=== PATIENT | female | born 2005 | race Two or more races ===

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

== ENCOUNTER 2024-01-04 11:09 | Emergency (ER) | payer MEDICAID ==
[~2024-01-04] VITALS: Ht 157.5 cm; Wt 68.6 kg
[2024-01-04 12:07] VITALS: BP 113/76; PULSE 80; RESP 14; TEMP 97.9; O2SAT 98
[2024-01-04] MEDS ORDERED: CEPH500C PO (12:25)
== END 2024-01-04 12:28 | disposition home or self-care (01) ==
LOC: ER 11:09
DX: M67.48 Ganglion, other site (principal); L08.89 Other specified local infections of the skin and subcutaneous tissue; F41.9 Anxiety disorder, unspecified; Z91.040 Latex allergy status; Z79.899 Other long term (current) drug therapy

== ENCOUNTER 2024-06-28 22:16 | Emergency (ER) | payer MEDICAID ==
[~2024-06-28] VITALS: Ht 157.5 cm; Wt 78.8 kg
[~2024-06-28 22:16] MED LIST: CEPH500C PO
[2024-06-28 23:52] VITALS: O2SAT 98
[2024-06-29] MEDS: IBUPROFEN 800 MG TAB PO ONE (00:08)
[2024-06-29] MEDS: ACETAMINOPHEN 500 MG TAB or CAP PO ONE (00:08)
[2024-06-29 00:31] LABS: COVID19 ANTIGEN SOFIA FIA NEGATIVE (NEGATIVE); Rapid Influenza B Negative (Negative)
[2024-06-29] MEDS: SODIUM CHLORIDE 0.9% 1,000 ML IV ONE (00:32)
[2024-06-29] MEDS: LORazepam 2MG/ML-1ML VIAL IV ONE (00:49)
--- NOTE | 2024-06-29 01:03 | ED.PDOC ---
SOB-HPI HPI Comments THIS IS A 18-YEAR-OLD FEMALE PRESENTS TO THE ED CHIEF COMPLAINT FLU-LIKE S YMPTOMS X2 DAYS. SHE REPORTS FEVERS AND COUGH. PATIENT ALSO REPORTS HISTORY OF ANXIETY WAS ON MEDICATION BUT STOPPED IT DUE TO WEIGHT GAIN. SHE DENIES HEADACHE, CHEST PAIN, DIFFICULTY BREATHING, SHORTNESS OF BREATH, ABDOMINAL PAIN. 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 Hx Family History Family History: Reviewed,noncontributory to illness Social History Smoker: Non-Smoker Alcohol: Denies ETOH Use Drugs: Denies Drug Use Lives In: Home Constitutional: reports: fever; denies: chills, diaphoresis, fatigue, malaise, sweats, weakness, others EENTM: denies: blurred vision, double vision, ear bleeding, ear discharge, ear drainage, ear pain, ear ringing, eye pain, eye redness, hearing loss, mouth pain, mouth swelling, nasal discharge, nose bleeding, nose congestion, nose pain, photophobia, tearing, throat pain, throat swelling, voice changes, others Respiratory: reports: cough Cardiovascular: denies: chest pain, dizzy spells, diaphoresis, Dyspnea on exertion, edema, irregular heart beat, left arm pain, lightheadedness, palpitations, PND, syncope, others Gastrointestinal: denies: abdomen distended, abdominal pain, blood streaked bowels, constipated, diarrhea, dysphagia, difficulty swallowing, hematemesis, melena, nausea, poor appetite, poor fluid intake, rectal bleeding, rectal pain, vomiting, others Genitourinary: denies: abnormal vagina bleeding, burning, dyspareunia, dysuria, flank pain, frequency, hematuria, incontinence, pain, , vagina discharge, urgency, others Neurological: denies: dizziness, fainting, headache, left sided numbness, left sided weakness, numbness, paresthesia, pre-existing deficit, right sided numbness, right sided weakness, seizure, speech problems, tingling, tremors, weakness, others Musculoskeletal: denies: back pain, gout, joint pain, joint swelling, muscle pain, muscle stiffness, neck pain, others Integumetry: denies: bruises, change in color, change in hair/nails, dryness, laceration, lesions, lumps, rash, wounds, others Allergic/Immunocompromised: denies: Difficulty Healing, Frequent Infections, Hives, Itching, others Hematologic/Lymphatic: denies: anemia, blood clots, easy bleeding, easy bruising, swollen glands, others Endocrine: denies: excessive hunger, excessive sweating, excessive thirst, excessive urination, flushing, intolerance to cold, intolerance to heat, unexplained weight gain, unexplained weight loss, others Psychiatric: reports: anxiety; denies: bipolar disorder, depression, hopeless, panic disorder, schizophrenia, sleepless, suicidal, others Physical Exam General Appearance: No Apparent Distress, Normal HEENT: Pharyngeal Erythema, TMs Normal Neck: Full Range of Motion, Non-Tender Respiratory: Lungs Clear, No Respiratory Distress, Normal Breath Sounds Cardiovascular: No Edema, No Murmur, No Gallop, Normal Peripheral Pulses, Regular Rate/Rhythm Breast Exam: Deferred Gastrointestinal: No Organomegaly, Non Tender, No Pulsatile Mass, Normal Bowel Sounds, Soft Genitalia: Deferred Pelvic: Deferred Rectal: Deferred Extremities: Normal capillary refill, Normal inspection, Normal range of motion, Non-tender, No pedal edema Musculoskeletal : Apperance: Normal Neurologic: Alert, lead burner apprentice II-XII nml as Tested, No Motor Deficits, Normal Affect, Normal Mood, No Sensory Deficits Cerebellar Function: Normal Reflexes: Normal Skin: Dry, Normal Color, Warm Lymphatic: No Adenopathy Differential Dx Differential Diagnosis: Anxiety, Panic Attack, Pneumonia X-Ray, Labs, Meds, VS Vital Signs Date Time Temp Pulse Resp B/P (MAP) Pulse Ox O2 Delivery O2 Flow Rate FiO2 06/29/24 01:08 99.5 06/29/24 01:08 99.5 06/29/24 00:08 102.8 06/29/24 00:08 102.8 06/28/24 23:52 132 20 98 Room Air 06/28/24 23:52 102.8 132 20 116/71 (86) 98 102.8 06/28/24 22:25 20 100 Room Air* 0 21 06/28/24 22:25 99.7 92 18 108/72 (84) 100 Lab Test 06/28/24 23:50 Range/Units Influenza Type A Antigen Positive Negative Influenza Type B Antigen Negative Negative SARS-CoV-2 Antigen (Rapid) Negative NEGATIVE Current Medications Medications (Trade) Dose Ordered Sig/Yeimy Route Start Time Stop Time Status Last Admin Acetaminophen (Tylenol Tablet Or Capsule) 500 mg ONCE ONCE PO 06/29/24 00:00 06/29/24 00:01 DC 06/29/24 00:08 Ibuprofen (Motrin Tablet) 800 mg ONCE ONCE PO 06/29/24 00:00 06/29/24 00:01 DC 06/29/24 00:08 Sodium Chloride 1,000 ml @ 1,000 mls/hr Q1H ONCE IV 06/29/24 00:00 06/29/24 00:59 DC 06/29/24 00:32 X-Ray, Labs, Meds, VS Comment INFLUENZA SWAB POSITIVE INFLUENZA A COVID SWAB NEGATIVE PATIENT TACHYCARDIC STARTED IV AND IV FLUID BOLUS. PATIENT ALSO WITH DIFFICULTY STARTING AN IV CRYING ANXIOUS MOVING. PATIENT GIVEN 0.5 MG OF ATIVAN FOR ANXIETY. POSITIVE INFLUENZA A. PATIENT REPORTS IMPROVEMENT, APPEARS LESS ANXIOUS AND REQUESTING DISCHARGE AT THIS TIME. TRIAL TAMIFLU TWICE DAILY X5 DAYS. ONCE OF MAINTAINING FLUIDS AND ELECTROLYTES. ADVISED TO TAKE TYLENOL OR MOTRIN [id number] NEEDED FOR FEVER PER LABELED DOSING INSTRUCTIONS. ADVISED TO FOLLOW UP WITH HER PCP IN 2-3 DAYS NECESSARY. ER RETURN PRECAUTIONS GIVEN PATIENT INDICATED UNDERSTANDING AGREES WITH DISCHARGE PLAN OF CARE. Time of 1ST Reevaluation: :26 Reevaluation 1ST: Improved Patient Education/Counseling: Diagnosis, Treatment, Prognosis, Need For Follow Up Family Education/Counseling: Diagnosis, Treatment, Prognosis, Need For Follow Up Departure 1 Departure Time of Disposition: 01:26 Impression: Primary Impression: Influenza A Disposition: 01 HOME / SELF CARE / HOMELESS Condition: Stable e-Prescriptions Oseltamivir Phosphate (Tamiflu) 75 Mg Cap 1 CAP PO BID for 5 Days, #10 CAP Prov: LORE PROCTOR 06/29/24 Discharged With: Significant Other Critical Care Note Critical Care Time?: No Stability Stability form required: LORE Baca Jun 29, 2024 01:03
[2024-06-29 01:08] VITALS: TEMP 99.5
[2024-06-29 01:10] LABS: Rapid Influenza A Positive (Negative)
[2024-06-29] MEDS ORDERED: OSEL75CA5 PO (01:28)
[2024-06-29 01:32] VITALS: BP 115/60; PULSE 115; RESP 20
== END 2024-06-29 01:39 | disposition home or self-care (01) ==
LOC: ER 22:16
DX: J10.1 Influenza due to other identified influenza virus with other respiratory manifestations (principal); F41.9 Anxiety disorder, unspecified; Z20.822 Contact with and (suspected) exposure to COVID-19
CPT/HCPCS: 36415; 87426; 87804; 96360; 99283; J2060; J7030